=== PATIENT | male | born 1995 | race Caucasian/White ===

== ENCOUNTER 2022-03-12 03:19 | Emergency (ER) | payer MEDICAID, OTHER ==
[~2022-03-12] VITALS: Ht 193 cm; Wt 136.4 kg
[2022-03-12 03:22] VITALS: BP 127/86
[2022-03-12] MEDS ORDERED: AMOXICILLIN TRIHYDRATE 250 MG CAPSULE PO ONE (04:00)
[2022-03-12] MEDS ORDERED: KETOROLAC TROMETHAMINE 30 MG/ML VIAL IM ONE (04:00)
[2022-03-12] MEDS ORDERED: AMOX250C4 PO (04:16)
== END 2022-03-12 04:30 | disposition home or self-care (01) ==
LOC: EMS 03:20
DX: K02.9 Dental caries, unspecified (principal); F12.90 Cannabis use, unspecified, uncomplicated
CPT/HCPCS: 99283; 96372; J1885

== ENCOUNTER 2024-04-08 12:13 | Emergency (ER) | payer OTHER ==
[~2024-04-08] VITALS: Ht 190.5 cm; Wt 104.5 kg
[~2024-04-08 12:13] MED LIST: AMOX250C4 PO
[2024-04-08 12:29] VITALS: BP 126/88; PULSE 90; RESP 18; TEMP 98; O2SAT 99
== END 2024-04-08 13:45 | disposition left against medical advice (07) ==
LOC: EMS 12:13
DX: S00.83XA Contusion of other part of head, initial encounter (principal); Z53.21 Procedure and treatment not carried out due to patient leaving prior to being seen by health care provider; Y04.8XXA Assault by other bodily force, initial encounter; Y93.89 Activity, other specified; Y92.89 Other specified places as the place of occurrence of the external cause; Y99.8 Other external cause status

== ENCOUNTER 2024-05-12 09:37 | Emergency (ER) | payer OTHER ==
[~2024-05-12] VITALS: Ht 190.5 cm; Wt 131.8 kg
[2024-05-12 09:40] VITALS: BP 109/69; PULSE 90; RESP 18; TEMP 98.6; O2SAT 99
[2024-05-12] MEDS ORDERED: DOXY-354 PO (10:09)
[2024-05-12] MEDS: IBUPROFEN 400 MG TABLET PO ONE (10:19)
[2024-05-12] MEDS: DOXYCYCLINE HYCLATE 100 MG TABLET PO ONE (10:19)
[2024-05-12] MEDS: ACETAMINOPHEN 500 MG TABLET PO ONE (10:19)
== END 2024-05-12 10:35 | disposition home or self-care (01) ==
LOC: EMS 09:37
DX: L03.116 Cellulitis of left lower limb (principal); F12.90 Cannabis use, unspecified, uncomplicated
CPT/HCPCS: 99284; Z7502; Z7610

== ENCOUNTER 2024-08-06 23:26 | Emergency (ER) | payer OTHER ==
[~2024-08-06] VITALS: Ht 172.7 cm; Wt 90.9 kg
[~2024-08-06 23:26] MED LIST changes: -AMOX250C4 PO; +DOXY-354 PO
[2024-08-06 23:36] VITALS: BP 130/84; PULSE 110; RESP 22; TEMP 99; O2SAT 100
[2024-08-07] MEDS: BACITRACIN 0.9 GM PACKET OINTMENT TP ONE (00:20)
== END 2024-08-07 00:24 ==
LOC: EMS 23:26
DX: S00.81XA Abrasion of other part of head, initial encounter (principal); F10.129 Alcohol abuse with intoxication, unspecified; F12.90 Cannabis use, unspecified, uncomplicated; X58.XXXA Exposure to other specified factors, initial encounter; Y93.89 Activity, other specified; Y92.89 Other specified places as the place of occurrence of the external cause; Y99.8 Other external cause status; Y90.9 Presence of alcohol in blood, level not specified
CPT/HCPCS: 99283; Z7502